=== PATIENT | female | born 1940 | race Caucasian/White ===

== ENCOUNTER 2017-11-02 03:05 | Emergency (ER) | payer MEDICARE, MEDICAID, SELFPAY ==
--- NOTE | 2017-11-02 00:17 | CT_ITS ---
STUDY: CT BRAIN WITHOUT CONTRAST REASON FOR EXAM: Female, 77 years old. Confusion RADIATION DOSAGE (If Supplied By Facility): CTDIvol = ( 44.99 ) mGy, DLP = ( 815.79 ) mGycm TECHNIQUE: Transaxial CT imaging of the brain was performed without administration of intravenous contrast material. Individualized dose optimization techniques were used for this CT. COMPARISON: None. FINDINGS: Normal soft tissue structures. There is evidence of left craniotomy. Postsurgical changes are noted in the left frontal lobe and in the left temporal lobe. There are areas of decreased attenuation within the white matter tracts of the supratentorial brain, consistent with microvascular disease changes. Normal basal ganglia and thalami. Normal brainstem. Normal cerebellum. There is no intracranial hemorrhage. There are no findings of an acute ischemic infarction. Normal visualized paranasal sinuses. CT/Brain/Head without Contrast IMPRESSION: Chronic involutional changes of the brain. Electronically Signed: Jenifer Roman MD at 3:32 EDT Tel , Service support ,
--- NOTE | 2017-11-02 03:00 | RAD_ITS ---
STUDY: X-RAY CHEST REASON FOR EXAM: Female, 77 years old. Confusion TECHNIQUE: Single AP portable view of the chest. COMPARISON: None. FINDINGS: Mild patchy airspace opacification in the right midlung and the right midlung base. Atelectasis at the left lung base. No pleural effusion or pneumothorax. Borderline cardiomegaly. Normal mediastinum and devi. Normal visualized pulmonary arteries. There is atherosclerotic calcification of the aortic arch. Dextroscoliosis of the thoracal lumbar spine with multilevel degenerative change. Normal visualized ribs, clavicles, and shoulders. There is no demonstrated abnormality of the visualized soft tissue structures of the upper abdomen. RAD/Chest 1 View IMPRESSION: Right midlung and bibasilar airspace opacification which may represent multifocal pneumonia versus atelectasis. Electronically Signed: Robert German MD at 3:18 EDT Tel , Service support ,
[2017-11-02 04:33] LABS: Mucous, Urine 0 SEEN /hpf (<or=2+); Red Blood Cells-Urine 0 SEEN /hpf (0-5); White Blood Cells 0 SEEN /hpf (0-5)
--- NOTE | 2017-11-02 04:33 | CT_ITS ---
STUDY: CT CERVICAL SPINE WITHOUT CONTRAST REASON FOR EXAM: Female, 77 years old. Fall RADIATION DOSAGE (If Supplied By Facility): CTDIvol = ( 16.33 ) mGy, DLP = ( 351.70 ) mGycm TECHNIQUE: High resolution transaxial imaging was performed without contrast material. Sagittal and coronal images were reconstructed. Individualized dose optimization techniques were used for this CT. COMPARISON: None FINDINGS: Normal craniovertebral junction. Degenerative changes are present involving the atlantoaxial axial articulation. Mild C4-5 anterolisthesis is likely degenerative in nature. Diffuse degenerative disease is present. A type II dens fracture is present. There is mild dorsal angulation of the dens fracture fragment. Carotid calcifications. Scarring in the lung apices. CT/Spine Cervical without Contras IMPRESSION: A type II dens fracture is present. The dens fragment is mildly dorsally angulated. N.B. : The above information has been verbally conveyed by Ronnie Perez MD to Mari Villatoro , Covering Physician, on 11/02/2017 05:37:29 (ET). Electronically Signed: Ronnie Perez MD at 5:37 EDT Tel , Service support , N.B. : The above information has been verbally conveyed by Ronnie Perez MD to Mari Villatoro , Covering Physician, on 11/02/2017 05:37:29 (ET).
[2017-11-02 04:36] LABS: Absolute Lymphocyte Count 1.03 X10^3/ul (0.83-4.51); Absolute Neutrophil Count 8.1 X10^3/uL (2.0-7.7); Basophil# 0.02 X10^3/uL; Basophil% 0.2 % (0-1); Eosinophil# 0.25 X10^3/uL; Eosinophils% 2.4 % (0-5); Hematocrit 44.4 % (37-47); Hemoglobin 13.8 g/dl (12.0-15.0); Lymphocyte # 1.03 X10^3/ul (4.0); Lymphocyte % 10.1 % (19-41); Mean Corp Hgb Conc 31.1 g/gl (32-36); Mean Corpuscular Hgb 27.1 pg (27.0-32.0); Mean Corpuscular Volume 87.1 fL (81-99); Mean Platelet Vol. 9.9 fl (6.2-12.0); Monocyte# 0.78 X10^3/uL; Monocyte% 7.6 % (0-10); Neutrophil # 8.12 X10^3/uL (2.7-7.7); Neutrophil % 79.3 % (47-70); Platelet Count 240 K/mm3 (150-450); RBC Distribution Width CV 15.8 % (11.6-14.6); RBC Distribution Width SD 50.8 fl (35.1-43.9); White Blood Count 10.2 K/mm3 (4.4-11.0)
--- NOTE | 2017-11-02 04:37 | ED.VISSUMM ---
- ER Visit Summary Date of Service: 11/02/17 Chief Complaint: [Confusion] History of Present Illness: The patient is a 77 F [who presents the emergency department with confusion. She fell down 2 steps. She was out walking around confused in the snow mumbling incoherently. Per her who does not live with her she has been increasingly confused over the last week but has dementia and history of traumatic brain injury. Other history is unable to be obtained as the patient is mumbling incoherently and the is a very poor historian and does not live with her.] Physical Examination: [] Tachycardic at 115 other vitals within normal limits Cachectic unkempt shivering WN WD NAD PERRL left pupil nonreactive and dilated Dry mucous membranes NECK tenderness diffusely mild Giller tachycardic rhythm no murmur rub or gallop, symmetric lower extremity edema, symmetric radial pulses CTAB no respiratory distress ABDOMEN is soft and nontender, normal bowel sounds, no distension, no rebound or guarding SKIN is warm and dry no rashes soft tissue tumors on abdomen and left anterior thigh Alert not oriented no focal deficits following commands intermittently No lymphadenopathy Test Results: [] Emergency Department Course and Treatment: [Patient was given fluids. Screening blood work was unremarkable. King was placed. CT of the cervical spine and head were obtained. CT of the head was reviewed by me and showed encephalomalacia from her previous traumatic brain injury but I did not observe any other acute process. I was called by radiology because patient has a fracture through the base of the dens that is mildly dorsally displaced. Patient was neurologically intact. C-spine precautions were maintained patient and her requested [facility]. I contacted [facility] for transfer and they were agreeable.] Treatment Plan: [] Disposition: [Transfer] Impression: [1. C2 fracture acute 2. Dementia with behavioral disturbances 3. Mild hypothermia] This note was generated with [employer] dictation software. It may contain incorrect words, spelling, and punctuation that were not noted in review of the chart prior to signing ED Disposition - Plan for ED Patient: Chief Complaint: Confusion Referrals: Rakesh Samaniego DO [Primary Care Provider] -
[2017-11-02 04:39] LABS: POSITIVE COUNT NO; POSITIVE DIFFERENTIAL NO; POSITIVE MORPHOLOGY NO
[2017-11-02 04:41] LABS: Color, Urine Yellow (Yellow); Glucose, Dipstick Normal (Normal); Ketone-Dipstick Negative (Negative); Leukocyte Esterase-Dipstick Negative /ul (Negative); Nitrite-Dipstick Negative (Negative); Occult Blood-Urine Negative /ul (Negative); Protein-Dipstick Negative (Negative); Specific Gravity, Urine 1.005 (1.002-1.030); Urine Bilirubin Dipstick Negative (Negative); Urine Clarity Clear (Clear); Urine Urobilinogen Normal (Normal); Urine pH 6.5 (5.0 - 8.0)
[2017-11-02 04:43] LABS: Amphetamine Urine VISTA NEGATIVE (<1000 ng/mL); Barbiturate Urine VISTA NEGATIVE (< 200 ng/mL); Benzodiazepine Urine VISTA NEGATIVE (< 200 ng/mL); Cocaine Urine VISTA NEGATIVE (< 300 ng/mL); Ecstacy Urine VISTA NEGATIVE (< 500 ng/mL); Methadone Urine VISTA POSITIVE (< 300 ng/mL); PCP Urine VISTA NEGATIVE (< 25 ng/mL); THC Urine VISTA NEGATIVE (< 50 ng/mL); Vista UDS pH Range 6
[2017-11-02 04:45] LABS: Alcohol, Blood (Medical)-Serum < 3.0 mg/dL
[2017-11-02 04:59] LABS: Bacteria RARE /hpf (None Seen); Squamous Epithelial Cells - UA 0-5 SEEN /hpf (5-10)
[2017-11-02 05:06] VITALS: BP 155/66; PULSE 104; RESP 23; O2SAT 94
--- NOTE | 2017-11-02 05:06 | NURSING ---
CHARTING DONE ON DOWNTIME FORMS.
[2017-11-02 05:10] LABS: ALB/GLOB Ratio 0.7 RATIO (0.9-2.4); AST(SGOT) 38 U/L (15-37); Alanine Aminotransfer ALT/SGPT 22 U/L (13-56); Alkaline Phosphatase 120 U/L (45-117); Amylase 24 U/L (25-115); Anion Gap 10 (5-15); BUN 5 mg/dL (7-18); BUN/Creat Ratio 7.9 RATIO (10-20); Calcium,Total 9.5 mg/dL (8.5-10.1); Chloride 101 mmol/L (98-107); Creatinine, Serum 0.63 mg/dL (0.55-1.02); EST Glomerular Filtration Rate 97 mL/min (>60); Est Glom Filt Rate - Afr Amer 118 mL/min (>60); Globulin 4.5 g/dL (2.2-4.2); Glucose 90 mg/dL (74-106); Lipase 159 U/L (73-393); Potassium 3.4 mmol/L (3.5-5.1); Protein, Total 7.5 g/dL (6.4-8.2); Sodium Level 139 mmol/L (136-145)
[2017-11-02 06:19] VITALS: BP 154/67; PULSE 111; RESP 23; TEMP 36.3; O2SAT 95
--- NOTE | 2017-11-02 06:21 | NURSING ---
PT UNABLE TO ANSWER QUESTIONS, IS NOT A GOT HISTORIAN.
[2017-11-02 06:22] VITALS: BP 178/65; PULSE 117; RESP 22; TEMP 35.6; O2SAT 96; BMI 23.3
[2017-11-02 08:11] LABS: Bedside Glucose 98 mg/dL (70-110)
== END 2017-11-02 06:24 | disposition short-term general hospital (02) ==
PROVIDERS: Emergency Provider Emergency Medicine; Family Provider Family Medicine; PCP Family Medicine
DX: S12.110A Anterior displaced Type II dens fracture, initial encounter for closed fracture (principal); F03.91 Unspecified dementia, unspecified severity, with behavioral disturbance; F05 Delirium due to known physiological condition; Z91.83 Wandering in diseases classified elsewhere; T68.XXXA Hypothermia, initial encounter; Z79.899 Other long term (current) drug therapy; W10.9XXA Fall (on) (from) unspecified stairs and steps, initial encounter; Y93.01 Activity, walking, marching and hiking; Y92.89 Other specified places as the place of occurrence of the external cause; Y99.8 Other external cause status
CPT/HCPCS: 70450; 71045; 72125; 80053; 80307; 80320; 81001; 82150; 82962; 83690; 85025; 87086; 99285; J7030; A4216; G0480

== ENCOUNTER 2019-05-02 16:42 | Emergency (ER) | payer MEDICARE, SELFPAY ==
[2019-05-02 16:43] VITALS: BP 145/78; PULSE 75; RESP 16; TEMP 36.1; O2SAT 97; BMI 23.8
--- NOTE | 2019-05-02 16:52 | EKG12_ITS ---
Test Reason : Blood Pressure : / mmHG Vent. Rate : 072 BPM Atrial Rate : 072 BPM P-R Int : 222 ms QRS Dur : 076 ms QT Int : 358 ms P-R-T Axes : 046 -11 014 degrees QTc Int : 392 ms Sinus rhythm with 1st degree A-V block Minimal voltage criteria for LVH, may be normal variant Possible Anterior infarct , age undetermined Abnormal ECG Confirmed by MARVA WHEELER, LOULOU ([id number]), avid editor GISELE PORTER ([id number]) on 05/04/2019 1:31:25 PM Referred By: [facility]O Confirmed By:NENA DURHAM MD
[2019-05-02 17:10] VITALS: O2SAT 98
[2019-05-02 17:31] LABS: Absolute Lymphocyte Count 1.06 X10^3/uL (0.83-4.51); Basophil# 0.06 X10^3/uL; Eosinophil# 0.27 X10^3/uL; Eosinophils% 4.5 % (0-5); Hematocrit 37.6 % (37-47); Hemoglobin 12.2 g/dL (12.0-15.0); Lymphocyte # 1.06 X10^3/ul (4.0); Lymphocyte % 17.8 % (19-41); Mean Corp Hgb Conc 32.4 g/dL (32-36); Mean Corpuscular Hgb 27.9 pg (27.0-32.0); Monocyte# 0.53 X10^3/uL; Monocyte% 8.9 % (0-10); NRBC Flagged by Analyzer 0 % (0-5); Neutrophil # 4.03 X10^3/uL (2.7-7.7); Neutrophil % 67.5 % (47-70); Platelet Count 242 K/mm3 (150-450); RBC Distribution Width CV 13.3 % (11.6-14.6); RBC Distribution Width SD 41.7 fl (35.1-43.9); Red Blood Count 4.37 M/mm3 (4.2-5.4)
[2019-05-02 17:55] LABS: Anion Gap 2 (5-15); BUN 25 mg/dL (7-18); BUN/Creat Ratio 23.8 RATIO (10-20); Calcium,Total 9.2 mg/dL (8.5-10.1); Chloride 101 mmol/L (98-107); Creatinine, Serum 1.05 mg/dL (0.55-1.02); EST Glomerular Filtration Rate 54 mL/min (>60); Est Glom Filt Rate - Afr Amer 65 mL/min (>60); Estimated Creatinine Clearance 36.11 ml/min; Glucose 110 mg/dL (74-106); Potassium 6.2 mmol/L (3.5-5.1); Sodium Level 130 mmol/L (136-145)
[2019-05-02 18:48] VITALS: BP 117/71; PULSE 57; RESP 18; O2SAT 98
--- NOTE | 2019-05-02 18:59 | ED.VISSUMM ---
- ER Visit Summary Date of Service: 05/02/19 Chief Complaint: Hyperkalemia History of Present Illness: The patient is a [address] Samaniego. She reports that she had blood work done today at [facility] and they show that her potassium was 6.1. She believes this was because the blood was drawn an hour after eating a banana. She reports that she has a cough is been present for approximately a month and has been improving. She denies any failure, chills, shortness of breath, or other complaints. Physical Examination: Vitals: Stable. Afebrile. General: Well-nourished and well-developed. Head: Normocephalic atraumatic. Neck: Supple, no lymphadenopathy. No JVD. Nontender. Cardiovascular: Regular rate and rhythm. 2 out of 6 systolic murmur. Respiratory: No respiratory distress. Clear to auscultation bilaterally. Abdominal: Soft, nontender, nondistended, normal bowel sounds. No guarding, rebound, or peritoneal signs. Back: Nontender. Extremities: Nontender, no edema. Skin: Normal color, no rash. Neurologic: Alert and oriented ?3. Cranial nerves II through XII are intact. Normal strength and sensation. Psych: Normal affect. Test Results: EKG is sinus at 72. There are no peaked T waves. She has a normal QRS interval. She is unchanged from October 2017. CBC shows monocytes of 18. Chem-7 shows a sodium 130, potassium 6.2, glucose 110, BUN 25, creatinine 1.05. Emergency Department Course and Treatment: Patient is remained stable here with no complaints. Treatment Plan: The patient was discussed with Dr. Gimenez, covering for Dr. Samaniego, he agrees with the plan of stopping her potassium supplements and her spironolactone. She is instructed to monitor for weight gain or edema. Get a repeat potassium and follow-up with Dr. Samaniego in 1 week. Return to the emergency department for any worsening symptoms. Disposition: To home in improved and stable condition. Impression: 1. Mild hyperkalemia, asymptomatic. 2. Potassium supplementation. This note was generated with [employer] software. It may contain incorrect words, spelling, and punctuation that were not noted in review of the chart prior to signing ED Disposition - Plan for ED Patient: Disposition: Home or Assisted Living Instructions: Hyperkalemia Referrals: Rakesh Samaniego DO [Primary Care Provider] - 1 Week Additional Instructions: Stop taking potassium and spironolactone. Watch for weight gain or leg swelling. Get your potassium checked again in 1 week.
[2019-05-02 19:30] VITALS: BP 138/59; PULSE 63; RESP 17; O2SAT 96
== END 2019-05-02 19:38 | disposition home or self-care (01) ==
PROVIDERS: Emergency Provider Emergency Medicine; Family Provider Family Medicine; PCP Family Medicine
DX: E87.5 Hyperkalemia (principal); F03.90 Unspecified dementia, unspecified severity, without behavioral disturbance, psychotic disturbance, mood disturbance, and anxiety; K21.9 Gastro-esophageal reflux disease without esophagitis; I10 Essential (primary) hypertension; E03.9 Hypothyroidism, unspecified; F41.9 Anxiety disorder, unspecified; F32.9 Major depressive disorder, single episode, unspecified; Z87.891 Personal history of nicotine dependence; Z79.899 Other long term (current) drug therapy
CPT/HCPCS: 80048; 85025; 93005; 96360; 99283; J7040; A4216

== ENCOUNTER → 2019-05-10 | Outpatient (CLI) | payer MEDICARE, MEDICAID, SELFPAY ==
[2019-05-02 16:43] VITALS: BMI 23.8
[2019-05-10 15:54] LABS: Absolute Lymphocyte Count 1.12 X10^3/uL (0.83-4.51); Absolute Neutrophil Count 3.8 X10^3/uL (2.0-7.7); Basophil# 0.08 X10^3/uL; Basophil% 1.4 % (0-1); Eosinophil# 0.28 X10^3/uL; Eosinophils% 4.8 % (0-5); Hematocrit 35.6 % (37-47); Hemoglobin 11.2 g/dL (12.0-15.0); Lymphocyte # 1.12 X10^3/ul (4.0); Lymphocyte % 19.3 % (19-41); Mean Corp Hgb Conc 31.5 g/dL (32-36); Mean Corpuscular Hgb 27.3 pg (27.0-32.0); Mean Corpuscular Volume 86.8 fL (81-99); Mean Platelet Vol. 9.5 fl (6.2-12.0); Monocyte# 0.56 X10^3/uL; Monocyte% 9.7 % (0-10); NRBC Flagged by Analyzer 0 % (0-5); Neutrophil # 3.75 X10^3/uL (2.7-7.7); Neutrophil % 64.6 % (47-70); Platelet Count 229 K/mm3 (150-450); RBC Distribution Width CV 13.3 % (11.6-14.6); RBC Distribution Width SD 42.2 fl (35.1-43.9); White Blood Count 5.8 K/mm3 (4.4-11.0)
[2019-05-10 16:19] LABS: ALB/GLOB Ratio 1.1 RATIO (0.9-2.4); AST(SGOT) 20 U/L (15-37); Alanine Aminotransfer ALT/SGPT 19 U/L (13-56); Albumin, Serum 3.9 g/dL (3.2-5.0); Alkaline Phosphatase 100 U/L (45-117); Anion Gap 7 (5-15); BUN 22 mg/dL (7-18); BUN/Creat Ratio 23.4 RATIO (10-20); Calcium,Total 9.3 mg/dL (8.5-10.1); Chloride 96 mmol/L (98-107); Creatinine, Serum 0.94 mg/dL (0.55-1.02); EST Glomerular Filtration Rate 61 mL/min (>60); Est Glom Filt Rate - Afr Amer 74 mL/min (>60); Globulin 3.6 g/dL (2.2-4.2); Glucose 91 mg/dL (74-106); Protein, Total 7.5 g/dL (6.4-8.2); Sodium Level 135 mmol/L (136-145); Thyroid Stim Hormone (TSH) 2.46 uIU/mL (0.358-3.74)
[2019-05-10 16:50] LABS: Vitamin D,25 Hydroxy 21.8 ng/mL (29.95-100.01)
== END | disposition home or self-care (01) ==
LOC: POLAB3 15:20
PROVIDERS: Visit Provider Family Medicine Geriatric Medicine
DX: E55.9 Vitamin D deficiency, unspecified (principal)
CPT/HCPCS: 36415; 80053; 82306; 84443; 85025

== ENCOUNTER → 2019-05-24 | Outpatient (CLI) | payer MEDICARE, SELFPAY ==
[2019-05-02 16:43] VITALS: BMI 23.8
--- NOTE | 2019-05-24 14:25 | RAD_ITS ---
STUDY: X-RAY - THORACIC SPINE REASON FOR EXAM: Female, 79 years old. Back pain. TECHNIQUE: AP and lateral view(s) of the thoracic spine were obtained. COMPARISON: Radiographs lumbar spine dated July 11, 2017. FINDINGS: There is an increase in the normal thoracic kyphosis. There is no substantial scoliosis. There is demineralization of the thoracic spine with endplate spondylosis. There is multilevel disc space narrowing of the thoracic spine. There is severe compression fracture of T12 and T10 vertebral plan appearances. The compression fracture T12 is new since the previous study as is the fracture of T10. The soft tissue structures are unremarkable. RAD/Thoracic Spine 2 Views IMPRESSION: Osteoporosis with severe compression fractures of T10 and T12 new since the previous study. Electronically Signed: Sarah Wright MD at 10:44 EDT , Service support ,
--- NOTE | 2019-05-24 14:25 | RAD_ITS ---
STUDY: X-RAY - LUMBAR SPINE REASON FOR EXAM: Female, 79 years old. Low back pain. TECHNIQUE: 5 view(s) of the lumbar spine were obtained. COMPARISON: CT of the abdomen and pelvis dated July 22, 2017. FINDINGS: Normal lumbar lordosis. There is no substantial scoliosis. There is a normal alignment of the vertebrae. There is generalized demineralization of the vertebral bodies. There is a severe compression fracture of T10. Estimated amount of compression is at least 70% of the expected height of this vertebral body. There is also severe compression fracture of T12 with vertebral plana appearance. This is new since the previous CT. There is multi-level degenerative disc disease with multi-level disc space narrowing. There is atherosclerotic calcification of the abdominal aorta without a demonstrated aneurysm. RAD/L/S Spine Min 4 Views IMPRESSION: 1. Osteoporosis. 2. A severe compression fracture of T12, new since the previous CT. 3. Severe compression fracture of T10 is probably unchanged since the previous study. Electronically Signed: Sarah Wright MD at 10:29 EDT , Service support ,
== END | disposition home or self-care (01) ==
PROVIDERS: Family Provider Family Medicine Geriatric Medicine; PCP Family Medicine Geriatric Medicine; Referring Provider Nurse Practitioner Family; Visit Provider Nurse Practitioner Family
DX: M54.5 Low back pain (principal); M54.6 Pain in thoracic spine
CPT/HCPCS: 72070; 72072; 72110

== ENCOUNTER → 2019-08-14 14:58 | Outpatient (CLI) | payer MEDICARE, SELFPAY ==
[2019-08-14 17:06] LABS: Absolute Lymphocyte Count 1.51 X10^3/uL (0.83-4.51); Absolute Neutrophil Count 5.7 X10^3/uL (2.0-7.7); Basophil# 0.06 X10^3/uL; Basophil% 0.7 % (0-1); Eosinophil# 0.24 X10^3/uL; Hematocrit 40.7 % (37-47); Hemoglobin 12.5 g/dL (12.0-15.0); Lymphocyte # 1.51 X10^3/ul (4.0); Lymphocyte % 18.6 % (19-41); Mean Corp Hgb Conc 30.7 g/dL (32-36); Mean Corpuscular Hgb 28.5 pg (27.0-32.0); Mean Corpuscular Volume 92.7 fL (81-99); Mean Platelet Vol. 9.9 fl (6.2-12.0); Monocyte# 0.61 X10^3/uL; Monocyte% 7.5 % (0-10); NRBC Flagged by Analyzer 0 % (0-5); Neutrophil # 5.66 X10^3/uL (2.7-7.7); Platelet Count 243 K/mm3 (150-450); RBC Distribution Width CV 12.9 % (11.6-14.6); Red Blood Count 4.39 M/mm3 (4.2-5.4); White Blood Count 8.1 K/mm3 (4.4-11.0)
[2019-08-14 17:25] LABS: Vitamin D,25 Hydroxy 14.1 ng/mL (29.95-100.01)
[2019-08-14 17:26] LABS: ALB/GLOB Ratio 1.1 RATIO (0.9-2.4); AST(SGOT) 17 U/L (15-37); Alanine Aminotransfer ALT/SGPT 19 U/L (13-56); Albumin, Serum 3.9 g/dL (3.2-5.0); Alkaline Phosphatase 102 U/L (45-117); Anion Gap 5 (5-15); BUN 19 mg/dL (7-18); BUN/Creat Ratio 18.8 RATIO (10-20); Calcium,Total 9.2 mg/dL (8.5-10.1); Chloride 104 mmol/L (98-107); Creatinine, Serum 1.01 mg/dL (0.55-1.02); EST Glomerular Filtration Rate 56 mL/min (>60); Est Glom Filt Rate - Afr Amer 68 mL/min (>60); Globulin 3.7 g/dL (2.2-4.2); Glucose 94 mg/dL (74-106); Potassium 4.2 mmol/L (3.5-5.1); Protein, Total 7.6 g/dL (6.4-8.2); Sodium Level 139 mmol/L (136-145)
== END ==
PROVIDERS: Family Provider Family Medicine Geriatric Medicine; PCP Family Medicine Geriatric Medicine; Visit Provider Family Medicine Geriatric Medicine
DX: E55.9 Vitamin D deficiency, unspecified (principal); I10 Essential (primary) hypertension
CPT/HCPCS: 36415; 80053; 82306; 84443; 85025

== ENCOUNTER → 2019-08-27 17:02 | Outpatient (CLI) | payer MEDICARE, SELFPAY ==
--- NOTE | 2019-08-27 17:10 | RAD_ITS ---
STUDY: X-RAY - ABDOMEN/PELVIS REASON FOR EXAM: Female, 79 years old. fecal impaction TECHNIQUE: AP supine and upright views of the abdomen and pelvis. COMPARISON: Previous study of 07/15/2017 FINDINGS: Normal visualized lung bases. There is an unremarkable bowel gas pattern. There is no demonstrated free abdominal air. The visualized liver, spleen and kidneys are grossly normal in size and morphology. Normal soft tissue structures. There is a severe S-shaped thoracolumbar scoliosis. RAD/Abd Inc Decub and/or Erect IMPRESSION: The bowel gas pattern is unremarkable. There is actually a paucity of colonic stool. There is no evidence of ileus or obstruction. S-shaped thoracolumbar scoliosis. Electronically Signed: Pako López MD at 16:19 EST , Service support ,
== END ==
PROVIDERS: Family Provider Family Medicine Geriatric Medicine; PCP Family Medicine Geriatric Medicine; Referring Provider Family Medicine Geriatric Medicine; Visit Provider Family Medicine Geriatric Medicine
DX: K56.41 Fecal impaction (principal); R50.9 Fever, unspecified
CPT/HCPCS: 74019; 87633

== ENCOUNTER → 2019-11-15 | Outpatient (CLI) | payer MEDICARE, SELFPAY ==
[2019-11-15 16:20] LABS: Absolute Lymphocyte Count 1.64 X10^3/uL (0.83-4.51); Absolute Neutrophil Count 4.8 X10^3/uL (2.0-7.7); Basophil# 0.07 X10^3/uL; Eosinophil# 0.15 X10^3/uL; Eosinophils% 2.1 % (0-5); Hematocrit 42.7 % (37-47); Hemoglobin 13.6 g/dL (12.0-15.0); Lymphocyte # 1.64 X10^3/ul (4.0); Lymphocyte % 22.8 % (19-41); Mean Corp Hgb Conc 31.9 g/dL (32-36); Mean Corpuscular Hgb 29.6 pg (27.0-32.0); Mean Platelet Vol. 9.5 fl (6.2-12.0); Monocyte# 0.53 X10^3/uL; Monocyte% 7.4 % (0-10); NRBC Flagged by Analyzer 0 % (0-5); Neutrophil # 4.77 X10^3/uL (2.7-7.7); Neutrophil % 66.4 % (47-70); Platelet Count 236 K/mm3 (150-450); RBC Distribution Width CV 12.9 % (11.6-14.6); RBC Distribution Width SD 44.1 fl (35.1-43.9); Red Blood Count 4.59 M/mm3 (4.2-5.4); White Blood Count 7.2 K/mm3 (4.4-11.0)
[2019-11-15 16:39] LABS: Vitamin D,25 Hydroxy 13.2 ng/mL
[2019-11-15 17:12] LABS: ALB/GLOB Ratio 1.1 RATIO (0.9-2.4); AST(SGOT) 22 U/L (15-37); Alanine Aminotransfer ALT/SGPT 25 U/L (13-56); Albumin, Serum 3.9 g/dL (3.2-5.0); Alkaline Phosphatase 91 U/L (45-117); Anion Gap 10 (5-15); BUN 21 mg/dL (7-18); BUN/Creat Ratio 20.6 RATIO (10-20); Calcium,Total 8.9 mg/dL (8.5-10.1); Chloride 99 mmol/L (98-107); Creatinine, Serum 1.02 mg/dL (0.55-1.02); EST Glomerular Filtration Rate 55 mL/min (>60); Est Glom Filt Rate - Afr Amer 67 mL/min (>60); Globulin 3.6 g/dL (2.2-4.2); Glucose 98 mg/dL (74-106); Potassium 4.2 mmol/L (3.5-5.1); Protein, Total 7.5 g/dL (6.4-8.2); Sodium Level 135 mmol/L (136-145); Thyroid Stim Hormone (TSH) 0.31 uIU/mL (0.358-3.74)
== END | disposition home or self-care (01) ==
LOC: POLAB3 14:16
PROVIDERS: PCP Family Medicine Geriatric Medicine; Visit Provider Family Medicine Geriatric Medicine
DX: E55.9 Vitamin D deficiency, unspecified (principal); I10 Essential (primary) hypertension
CPT/HCPCS: 36415; 80053; 82306; 84443; 85025

== ENCOUNTER → 2020-01-01 10:29 | Outpatient (CLI) | payer MEDICARE, SELFPAY ==
[2020-01-01 13:10] LABS: Thyroid Stim Hormone (TSH) 1.07 uIU/mL (0.358-3.74)
== END ==
PROVIDERS: PCP Family Medicine Geriatric Medicine; Visit Provider Family Medicine Geriatric Medicine
DX: E03.9 Hypothyroidism, unspecified (principal)
CPT/HCPCS: 36415; 84443

== ENCOUNTER → 2020-01-21 15:31 | Outpatient (CLI) | payer MEDICARE, SELFPAY ==
[2020-01-21 17:39] LABS: Thyroid Stim Hormone (TSH) 0.61 uIU/mL (0.358-3.74)
== END ==
PROVIDERS: PCP Family Medicine Geriatric Medicine; Visit Provider Family Medicine Geriatric Medicine
DX: E03.9 Hypothyroidism, unspecified (principal)
CPT/HCPCS: 36415; 84443

== ENCOUNTER → 2020-02-13 | Outpatient (CLI) | payer MEDICARE, SELFPAY ==
[2020-02-13 16:11] LABS: Absolute Lymphocyte Count 1.22 X10^3/uL (0.83-4.51); Absolute Neutrophil Count 3.9 X10^3/uL (2.0-7.7); Basophil# 0.07 X10^3/uL; Basophil% 1.2 % (0-1); Eosinophil# 0.24 X10^3/uL; Hematocrit 40.6 % (37-47); Lymphocyte # 1.22 X10^3/ul (4.0); Lymphocyte % 20.3 % (19-41); Mean Corpuscular Hgb 29.5 pg (27.0-32.0); Mean Corpuscular Volume 92.3 fL (81-99); Mean Platelet Vol. 9.8 fl (6.2-12.0); Monocyte# 0.56 X10^3/uL; Monocyte% 9.3 % (0-10); NRBC Flagged by Analyzer 0 % (0-5); Neutrophil % 64.7 % (47-70); Platelet Count 222 K/mm3 (150-450); RBC Distribution Width CV 11.6 % (11.6-14.6)
[2020-02-13 16:47] LABS: AST(SGOT) 18 U/L (15-37); Alanine Aminotransfer ALT/SGPT 15 U/L (13-56); Albumin, Serum 3.5 g/dL (3.2-5.0); Alkaline Phosphatase 84 U/L (45-117); Anion Gap 4 (5-15); BUN 16 mg/dL (7-18); BUN/Creat Ratio 17.3 RATIO (10-20); Calcium,Total 8.9 mg/dL (8.5-10.1); Chloride 106 mmol/L (98-107); Creatinine, Serum 0.93 mg/dL (0.55-1.02); EST Glomerular Filtration Rate 62 mL/min (>60); Est Glom Filt Rate - Afr Amer 75 mL/min (>60); Globulin 3.6 g/dL (2.2-4.2); Glucose 114 mg/dL (74-106); Potassium 3.9 mmol/L (3.5-5.1); Protein, Total 7.1 g/dL (6.4-8.2); Sodium Level 139 mmol/L (136-145); Thyroid Stim Hormone (TSH) 1.26 uIU/mL (0.358-3.74)
[2020-02-13 17:07] LABS: Vitamin D,25 Hydroxy 26.6 ng/mL
== END | disposition home or self-care (01) ==
LOC: POLAB3 15:07
PROVIDERS: PCP Family Medicine Geriatric Medicine; Visit Provider Family Medicine Geriatric Medicine
DX: E55.9 Vitamin D deficiency, unspecified (principal); I10 Essential (primary) hypertension
CPT/HCPCS: 36415; 80053; 82306; 84443; 85025

== ENCOUNTER → 2020-05-12 | Outpatient (CLI) | payer MEDICARE, SELFPAY ==
[2020-05-12 17:16] LABS: Absolute Lymphocyte Count 1.64 X10^3/uL (0.83-4.51); Absolute Neutrophil Count 3.8 X10^3/uL (2.0-7.7); Basophil# 0.08 X10^3/uL; Basophil% 1.3 % (0-1); Eosinophil# 0.25 X10^3/uL; Eosinophils% 3.9 % (0-5); Hematocrit 40.6 % (37-47); Hemoglobin 12.9 g/dL (12.0-15.0); Lymphocyte # 1.64 X10^3/ul (4.0); Lymphocyte % 25.7 % (19-41); Mean Corp Hgb Conc 31.8 g/dL (32-36); Mean Corpuscular Volume 91.2 fL (81-99); Monocyte# 0.63 X10^3/uL; Monocyte% 9.9 % (0-10); NRBC Flagged by Analyzer 0 % (0-5); Neutrophil # 3.75 X10^3/uL (2.7-7.7); Neutrophil % 58.9 % (47-70); Platelet Count 269 K/mm3 (150-450); RBC Distribution Width CV 12.4 % (11.6-14.6); RBC Distribution Width SD 40.9 fl (35.1-43.9); Red Blood Count 4.45 M/mm3 (4.2-5.4); White Blood Count 6.4 K/mm3 (4.4-11.0)
[2020-05-12 17:59] LABS: Vitamin D,25 Hydroxy 26.7 ng/mL
[2020-05-12 18:19] LABS: AST(SGOT) 27 U/L (15-37); Alanine Aminotransfer ALT/SGPT 17 U/L (13-56); Albumin, Serum 3.7 g/dL (3.2-5.0); Alkaline Phosphatase 83 U/L (45-117); Anion Gap 7 (5-15); BUN 16 mg/dL (7-18); BUN/Creat Ratio 14.2 RATIO (10-20); Calcium,Total 9.2 mg/dL (8.5-10.1); Chloride 102 mmol/L (98-107); Creatinine, Serum 1.13 mg/dL (0.55-1.02); EST Glomerular Filtration Rate 49 mL/min (>60); Est Glom Filt Rate - Afr Amer 59 mL/min (>60); Globulin 3.7 g/dL (2.2-4.2); Glucose 109 mg/dL (74-106); Potassium 4.3 mmol/L (3.5-5.1); Protein, Total 7.4 g/dL (6.4-8.2); Sodium Level 136 mmol/L (136-145); Thyroid Stim Hormone (TSH) 1.98 uIU/mL (0.358-3.74)
== END | disposition home or self-care (01) ==
LOC: POLAB3 14:50
PROVIDERS: PCP Family Medicine Geriatric Medicine; Visit Provider Family Medicine Geriatric Medicine
DX: E55.9 Vitamin D deficiency, unspecified (principal); I10 Essential (primary) hypertension
CPT/HCPCS: 36415; 80053; 82306; 84443; 85025

== ENCOUNTER → 2020-07-22 09:26 | Outpatient (CLI) | payer MEDICARE, SELFPAY ==
--- NOTE | 2020-07-22 09:34 | RAD_ITS ---
STUDY: X-RAY - ESOPHAGUS (BARIUM SWALLOW) WITH FLUOROSCOPY REASON FOR EXAM: Female, 80 years old. DYSPHAGIA, DRAINAGE TECHNIQUE: 18 view(s) of the esophagus were obtained following swallowing of barium. FLUOROSCOPY TIME (if supplied): (0:44) minutes/seconds COMPARISON: None. FINDINGS: There is no demonstrated esophageal foreign body. There is no demonstrated stricture or mucosal abnormality. Normal gastroesophageal junction, without a demonstrated hiatal hernia. The patient ingested a 12 mm tablet of barium. The tablet is trapped at the gastroesophageal junction. There is atherosclerotic tortuosity of the aortic arch and descending thoracic aorta. Normal visualized pulmonary parenchyma. There are diffuse degenerative changes of the visualized thoracic spine. RAD/Esophagus Single Contrast IMPRESSION: The ingested 12 mm tablet of barium is trapped at the gastroesophageal junction. Electronically Signed: Bernardino Calabrese, at 10:12 EST , Service support ,
== END ==
PROVIDERS: PCP Family Medicine Geriatric Medicine; Referring Provider Family Medicine Geriatric Medicine; Visit Provider Family Medicine Geriatric Medicine
DX: R47.89 Other speech disturbances (principal)
CPT/HCPCS: 74220

== ENCOUNTER → 2021-03-05 05:00 | Outpatient (REF) | payer MEDICARE, MEDICAID, SELFPAY ==
[2021-03-05 08:11] LABS: Hemoglobin 11.5 g/dL (12.0-15.0); Mean Corp Hgb Conc 31.1 g/dL (32-36); Mean Corpuscular Hgb 28.9 pg (27.0-32.0); Mean Platelet Vol. 9.3 fl (6.2-12.0); Platelet Count 218 K/mm3 (150-450); RBC Distribution Width CV 12.9 % (11.6-14.6); Red Blood Count 3.98 M/mm3 (4.2-5.4); White Blood Count 7.3 K/mm3 (4.4-11.0)
[2021-03-05 08:23] LABS: Anion Gap 4 (5-15); BUN 16 mg/dL (7-18); BUN/Creat Ratio 22.8 RATIO (10-20); Calcium,Total 8.5 mg/dL (8.5-10.1); Chloride 106 mmol/L (98-107); EST Glomerular Filtration Rate 85 mL/min (>60); Est Glom Filt Rate - Afr Amer 103 mL/min (>60); Glucose 113 mg/dL (74-106); Potassium 3.9 mmol/L (3.5-5.1); Sodium Level 141 mmol/L (136-145)
== END ==
LOC: OLS.SWAL 05:00
PROVIDERS: PCP Family Medicine Geriatric Medicine; Visit Provider Internal Medicine
DX: I10 Essential (primary) hypertension (principal)
CPT/HCPCS: 36415; 80048; 85027

== ENCOUNTER 2021-05-11 13:12 | Emergency (ER) | payer MEDICARE, MEDICAID, SELFPAY ==
[2021-05-11 13:14] VITALS: BP 176/104; PULSE 69; RESP 18; TEMP 36.8; O2SAT 98; BMI 25.4
--- NOTE | 2021-05-11 14:10 | CT_ITS ---
STUDY: CT BRAIN WITHOUT CONTRAST REASON FOR EXAM: Female, 81 years old. Altered mental status RADIATION DOSAGE (If Supplied By Facility): CTDIvol = ( 38.43 ) mGy, DLP = ( 683.87 ) mGycm TECHNIQUE: Transaxial CT imaging of the brain was performed without administration of intravenous contrast material. Individualized dose optimization techniques were used for this CT. COMPARISON: Comparison is made with prior study dated 05/29/2016. FINDINGS: Normal soft tissue structures. Once again, the patient is status post craniotomy of the left frontal temporal region. There is mild cerebral atrophy with widening of the extra-axial spaces and ventricular dilatation. Stable encephalomalacia involving the left temporal lobe extending into the left frontal and parietal lobes. Stable chronic periventricular deep white matter ischemic gliosis. Old lacunar infarct of the insular cortex of the right temporal lobe. Normal brainstem. Normal cerebellum. There is no intracranial hemorrhage. There are no findings of an acute ischemic infarction. Normal visualized paranasal sinuses. CT/Brain/Head without Contrast IMPRESSION: Status post left craniotomy with stable encephalomalacia. No acute abnormality is seen. Electronically Signed: Bernardino Calabrese MD at 14:58 EDT , Service support ,
[2021-05-11 14:26] LABS: Absolute Lymphocyte Count 1.57 X10^3/uL (0.83-4.51); Absolute Neutrophil Count 4.4 X10^3/uL (2.0-7.7); Basophil# 0.07 X10^3/uL; Eosinophil# 0.27 X10^3/uL; Eosinophils% 3.9 % (0-5); Hematocrit 42.2 % (37-47); Hemoglobin 13.4 g/dL (12.0-15.0); Lymphocyte # 1.57 X10^3/ul (0.83-4.51); Lymphocyte % 22.8 % (19-41); Mean Corp Hgb Conc 31.8 g/dL (32-36); Mean Corpuscular Volume 91.3 fL (81-99); Mean Platelet Vol. 9.7 fl (6.2-12.0); Monocyte# 0.57 X10^3/uL; Monocyte% 8.3 % (0-10); NRBC Flagged by Analyzer 0 % (0-5); Neutrophil # 4.38 X10^3/uL (2.7-7.7); Neutrophil % 63.7 % (47-70); Platelet Count 205 K/mm3 (150-450); RBC Distribution Width CV 12.9 % (11.6-14.6); RBC Distribution Width SD 43.5 fl (35.1-43.9); Red Blood Count 4.62 M/mm3 (4.2-5.4); White Blood Count 6.9 K/mm3 (4.4-11.0)
--- NOTE | 2021-05-11 14:30 | RAD_ITS ---
STUDY: X-RAY CHEST REASON FOR EXAM: Female, 81 years old. AMS TECHNIQUE: Single AP portable view of the chest. COMPARISON: Comparison is made with prior study dated 04/04/2014. FINDINGS: Questionable early infiltrate in the right upper lobe. Mild increased markings at the left lung base. There is no demonstrated pleural abnormality. Normal size heart. Prominence of the right hilum. Underlying mass lesion in the right hilum should be ruled out. Normal visualized pulmonary arteries. There is atherosclerotic calcification of the aortic arch with tortuosity. Normal visualized thoracic spine. Normal visualized ribs, clavicles, and shoulders. There is no demonstrated abnormality of the visualized soft tissue structures of the upper abdomen. RAD/Chest 1 View (Portable) IMPRESSION: Questionable early infiltrate in the right upper lobe with prominence of the right hilar structures. Correlation with the CT scan recommended. Electronically Signed: Bernardino Calabrese MD at 14:52 EDT , Service support ,
--- NOTE | 2021-05-11 14:35 | EDS_ITS ---
HPI HPI - Psych History of Present Illness Chief Complaint: Mental Health Narrative Narrative: 81-year-old female from [facility] presenting with increased hallucinations, agitation, aggression with staff at [facility]. Patient is unable to give a history. Apparently over the weekend the patient was bringing her piña initially stating that her neighbor was playing loud music however when she was checked on there was no music heard in the patient's room. The nurse went to the neighbors room and there was no music playing. She complained of this a couple of times. Patient also has reports of reading her piña saying that she is confused and scared. Nursing staff attempted to calm her down and was reassured that nobody had acute of her room except for the nursing staff. She then ran again and stating that somebody was outside her door. Early in the morning nursing staff went in and she began swinging at the staff member. She had her lights on in the room stating that she was scared. She was stating I know they will be coming back for me. She is stating that her legs are hurting from chasing people all night. Patient does have history of anxiety, hypertension, personality sorter, dementia, TBI. [facility] Medical History Anxiety Dementia Depression Dysphagia, oral phase GERD (gastroesophageal reflux disease) Hypertension Psychotic disorder with hallucinations due to known physiological condition Traumatic brain injury Home Medications levothyroxine 88 mcg PO DAILY 04/04/14 [History Last Taken Unknown] acetaminophen [Tylenol Extra Strength] 1,000 mg PO TID 05/11/21 [History Last Taken Unknown] albuterol sulfate 2 puff INHALATION TID 05/11/21 [History Last Taken Unknown] doxepin 50 mg PO QHS 05/11/21 [History Last Taken Unknown] lidocaine 1 patch TOPICAL DAILY 05/11/21 [History Last Taken Unknown] lisinopril 20 mg PO DAILY 05/11/21 [History Last Taken Unknown] meloxicam 15 mg PO DAILY 05/11/21 [History Last Taken Unknown] memantine 10 mg PO BID 05/11/21 [History Last Taken Unknown] metoprolol succinate 50 mg PO DAILY 05/11/21 [History Last Taken Unknown] senna-docusate sodium [Senna Plus (senna-docusate)] 2 tab PO BID 05/11/21 [History Last Taken Unknown] Allergy/AdvReac Type Severity Reaction Status Date / Time alprazolam [From Xanax] Allergy Other Verified 05/02/19 17:06 chlorpheniramine maleate Allergy Other Verified 05/02/19 17:06 [From Actifed Cold-Allergy] Penicillins Allergy Rash Verified 05/02/19 17:06 phenylephrine HCl Allergy Other Verified 05/02/19 17:06 [From Actifed Cold-Allergy] pseudoephedrine HCl Allergy Other Verified 05/02/19 17:06 [From Actifed Cold-Allergy] Sulfa (Sulfonamide Allergy Vomiting Verified 05/02/19 17:06 Antibiotics) triprolidine HCl Allergy Other Verified 05/02/19 17:06 [From Actifed Cold-Allergy] Social History Smoking Status: Never smoker ROS ROS ED Review of Systems ROS Unobtainable: due to mental status EXAM Physical Exam Const Vital Signs: 05/11/21 13:14 05/11/21 15:37 05/11/21 16:00 Temperature 98.3 F Temperature Source Temporal Pulse Rate 69 Respiratory Rate 18 17 16 Blood Pressure 176/104 H Blood Pressure Mean 128 Pulse Ox 98 Oxygen Delivery Method Room Air Room Air 05/11/21 17:00 05/11/21 18:00 05/11/21 19:25 Temperature Temperature Source Pulse Rate 88 Respiratory Rate 17 17 16 Blood Pressure 160/80 H Blood Pressure Mean 106 Pulse Ox 98 Oxygen Delivery Method Room Air Room Air Positive well nourished General Appearance ED: NAD HEENT normocephalic and atraumatic Eyes PERRL and EOMs intact bilaterally Resp normal respiratory effort and clear to auscultation bilaterally Cardio Rate: regular rate Rhythm: regular rhythm GI non-tender and non-distended Palpation: soft Extremity normal to inspection Neuro CN's II-XII intact bilaterally and no sensory deficits noted Sensorium / Orientation: alert Motor Exam: strength 5/5 throughout Psych Appearance: grossly normal Skin Lesions: no lesions Rashes: no rashes MDM MDM MDM Narrative Medical decision making narrative: Patient presenting with increased agitation and apparently was aggressive with staff and hallucinating. She does have history of dementia and TBI. There is no report of injury. Patient had blood work done today which shows a normal CBC and CMP. Troponin was 9. EtOH 9. Drug screen negative. Chest x-ray on my interpretation showed no acute cardiopulmonary process however the radiologist view there may be a developing infiltrate in the right lower lobe. There was recommendation for CT scan which was performed. CT of the chest shows bilateral apical thickening/scarring and interstitial thickening in the upper lobes. I did attempt to call the on-call doctor for her at her facility however never returned a call I was going to report these findings. Patient has normal vital signs and has been stable here. She did have to get Haldol x1. After that she was able to eat a sandwich and is resting comfortably in bed. After medically cleared she did see social work and elementary [employer] social worker was able to talk to the facility and they are amenable to taking her back. I feel she is stable to be discharged back to the facility at this time. Impression: 1. Apical lung scarring/thickening upper lobes 2. Agitated behavior Lab Data Attestation: I reviewed the patient's lab results. Labs: Laboratory Results - last 24 hr 05/11/21 05/11/21 05/11/21 14:14 14:14 14:14 WBC 6.9 RBC 4.62 Hgb 13.4 Hct 42.2 MCV 91.3 MCH 29.0 MCHC 31.8 L RDW Std Deviation 43.5 RDW Coeff of Rai 12.9 Plt Count 205 MPV 9.7 Immature Gran % (Auto) 0.300 Neut % (Auto) 63.7 Lymph % (Auto) 22.8 [place] % (Auto) 8.3 Eos % (Auto) 3.9 Baso % (Auto) 1.0 Absolute Neuts (auto) 4.4 Absolute Lymphs (auto) 1.57 Nucleated RBC % 0 Sodium 143 Potassium 3.8 Chloride 105 Carbon Dioxide 32.0 Anion Gap 6 BUN 18 Creatinine 0.88 Estim Creat Clear Calc 40.77 Est GFR (MDRD) Af Amer 79 Est GFR (MDRD) Non-Af 65 BUN/Creatinine Ratio 20.3 H Glucose 100 Calcium 9.2 Total Bilirubin 0.50 AST 21 ALT 15 Alkaline Phosphatase 78 Troponin I High Sens 9 Total Protein 7.2 Albumin 3.7 Globulin 3.5 Albumin/Globulin Ratio 1.1 Urine Opiates Screen Urine Methadone Screen Ur Barbiturates Screen Ur Phencyclidine Scrn Ur Amphetamines Screen U Methamphetamin-MDMA U Benzodiazepines Scrn Urine Cocaine Screen U Cannabinoids Screen Ur Drug Screen Comment Ethyl Alcohol 9.0 05/11/21 14:14 WBC RBC Hgb Hct MCV MCH MCHC RDW Std Deviation RDW Coeff of Rai Plt Count MPV Immature Gran % (Auto) Neut % (Auto) Lymph % (Auto) [place] % (Auto) Eos % (Auto) Baso % (Auto) Absolute Neuts (auto) Absolute Lymphs (auto) Nucleated RBC % Sodium Potassium Chloride Carbon Dioxide Anion Gap BUN Creatinine Estim Creat Clear Calc Est GFR (MDRD) Af Amer Est GFR (MDRD) Non-Af BUN/Creatinine Ratio Glucose Calcium Total Bilirubin AST ALT Alkaline Phosphatase Troponin I High Sens Total Protein Albumin Globulin Albumin/Globulin Ratio Urine Opiates Screen NEGATIVE Urine Methadone Screen NEGATIVE Ur Barbiturates Screen NEGATIVE Ur Phencyclidine Scrn NEGATIVE Ur Amphetamines Screen NEGATIVE U Methamphetamin-MDMA NEGATIVE U Benzodiazepines Scrn NEGATIVE Urine Cocaine Screen NEGATIVE U Cannabinoids Screen NEGATIVE Ur Drug Screen Comment Ethyl Alcohol Radiography Diagnostic Testing: Radiology Impression Brain CT 05/11/21 14:10 IMPRESSION: Status post left craniotomy with stable encephalomalacia. No acute abnormality is seen. Electronically Signed: Bernardino Calabrese MD at 14:58 EDT , Service support , Chest X-Ray 05/11/21 14:30 IMPRESSION: Questionable early infiltrate in the right upper lobe with prominence of the right hilar structures. Correlation with the CT scan recommended. Electronically Signed: Bernardino Calabrese MD at 14:52 EDT , Service support , Chest CT 05/11/21 16:38 IMPRESSION: Bilateral apical nodular densities are noted. Further evaluation is needed. Interstitial thickening/scarring bilaterally in the upper lobes. Electronically Signed: Clem Connors DO at 17:32 EDT Tel [phone], Service support , Discharge Plan Triage Chief Complaint: Mental Health ED Provider: Meng New Dx/Rx/DC Orders Instructions: ED Psychosis Prescriptions: No Action levothyroxine 88 MCG tablet 88 mcg PO DAILY RF: 0 doxepin 50 mg capsule 50 mg PO QHS RF: 0 metoprolol succinate 50 mg tablet extended release 24 hr 50 mg PO DAILY RF: 0 meloxicam 15 mg tablet 15 mg PO DAILY RF: 0 lisinopril 20 mg tablet 20 mg PO DAILY RF: 0 lidocaine 5 % adhesive patch,medicated 1 patch topical DAILY RF: 0 albuterol sulfate 90 mcg/actuation HFA aerosol inhaler 2 puff INHALATION TID RF: 0 acetaminophen [Tylenol Extra Strength] 500 mg Capsule 1,000 mg PO TID RF: 0 Senna Plus (senna-docusate) Tablet 2 tab PO BID RF: 0 memantine 10 mg tablet 10 mg PO BID RF: 0 Primary Care Provider: Sindhu Davis Referrals: Sindhu Davis MD [Primary Care Provider] - Disposition Disposition: Home, Self Care
[2021-05-11 14:41] LABS: Amphetamine Urine VISTA NEGATIVE (<1000 ng/mL); Barbiturate Urine VISTA NEGATIVE (< 200 ng/mL); Benzodiazepine Urine VISTA NEGATIVE (< 200 ng/mL); Cocaine Urine VISTA NEGATIVE (< 300 ng/mL); Ecstacy Urine VISTA NEGATIVE (< 500 ng/mL); Methadone Urine VISTA NEGATIVE (< 300 ng/mL); PCP Urine VISTA NEGATIVE (< 25 ng/mL); THC Urine VISTA NEGATIVE (< 50 ng/mL); Vista UDS pH Range 5
[2021-05-11 14:45] LABS: ALB/GLOB Ratio 1.1 RATIO (0.9-2.4); AST(SGOT) 21 U/L (15-37); Alanine Aminotransfer ALT/SGPT 15 U/L (13-56); Albumin, Serum 3.7 g/dL (3.2-5.0); Alkaline Phosphatase 78 U/L (45-117); Anion Gap 6 (5-15); BUN 18 mg/dL (7-18); BUN/Creat Ratio 20.3 RATIO (10-20); Calcium,Total 9.2 mg/dL (8.5-10.1); Chloride 105 mmol/L (98-107); Creatinine, Serum 0.88 mg/dL (0.55-1.02); EST Glomerular Filtration Rate 65 mL/min (>60); Est Glom Filt Rate - Afr Amer 79 mL/min (>60); Estimated Creatinine Clearance 40.77 ml/min; Globulin 3.5 g/dL (2.2-4.2); Glucose 100 mg/dL (74-106); Potassium 3.8 mmol/L (3.5-5.1); Protein, Total 7.2 g/dL (6.4-8.2); Sodium Level 143 mmol/L (136-145); Troponin-I HS 9 pg/mL (3.0-54.0)
[2021-05-11 15:37] VITALS: RESP 17
[2021-05-11 16:00] VITALS: RESP 16
--- NOTE | 2021-05-11 16:38 | CT_ITS ---
STUDY: CT CHEST WITHOUT CONTRAST REASON FOR EXAM: Female, 81 years old. Abnormal chest xray RADIATION DOSAGE (If Supplied By Facility): CTDIvol = ( 11.62 ) mGy, DLP = ( 319.29 ) mGycm TECHNIQUE: Transaxial imaging was performed without the administration of intravenous contrast material. Individualized dose optimization techniques were used for this CT. COMPARISON: None. FINDINGS: The lungs are expanded. There is a right apical nodular density noted measuring 2.3 x 1.0 x 1.4 cm. A left upper lobe densities also noted measuring 1.8 x 1.8 x 1.1 cm. Interstitial thickening/scarring is noted within the upper lobes. Normal heart and pericardium. Normal mediastinum. Normal hilar regions. Normal unenhanced pulmonary arteries. Calcified aorta arch and descending thoracic aorta. Old compressions are noted on the T8, T10, and T12. There is no demonstrated abnormality of the visualized upper abdomen. CT/Chest without Contrast IMPRESSION: Bilateral apical nodular densities are noted. Further evaluation is needed. Interstitial thickening/scarring bilaterally in the upper lobes. Electronically Signed: Clem Connors DO at 17:32 EDT Tel [phone], Service support ,
[2021-05-11 17:00] VITALS: RESP 17
[2021-05-11 18:00] VITALS: RESP 17
[2021-05-11] MEDS: Haloperidol Lactate 5 MG/ML Vial 2 MG IV (18:01)
[2021-05-11 19:25] VITALS: BP 160/80; PULSE 88; RESP 16; O2SAT 98
--- NOTE | 2021-05-11 19:35 | CM.ED ---
TASNEEM Note Referral Source: MD Referral Reason: Patient, per chart, is having hallucination. SW met with patient briefly. Patient requested this caption writer take mask down as she indicated she could not understand. Patient then dropped her hearing aide and was concerned about it's location however, it was located in bed. Due to patient's functioning level this caption writer was unable to complete assessment. TASNEEM updated MD regarding the interaction and that patient appeared to be at baseline in regards to her diagnosis. MD asked if [facility] would take her back. RN called [facility] and they agreed to take patient back. IF psych issues arise they can also contact any inpatient [facility] however, patient appears to be at baseline. RN reports no aggressive behavior with patient while in ED. Of note, patient has history of TBI. Plan: Return to [facility] as patient is at her baseline Stephanie Echevarria
[2021-05-11] MEDS: Memantine Hydrochloride 10 MG Tablet PO (21:13)
[2021-05-11] MEDS: DOXEPIN HCL 50 MG CAPSULE PO (21:13)
== END 2021-05-11 22:03 | disposition home or self-care (01) ==
PROVIDERS: Emergency Provider Student in an Organized Health Care Education/Training Program; PCP Internal Medicine
DX: J98.4 Other disorders of lung (principal); R45.1 Restlessness and agitation; F03.91 Unspecified dementia, unspecified severity, with behavioral disturbance; F41.9 Anxiety disorder, unspecified; K21.9 Gastro-esophageal reflux disease without esophagitis; I10 Essential (primary) hypertension; F32.9 Major depressive disorder, single episode, unspecified; Z79.899 Other long term (current) drug therapy
CPT/HCPCS: 70450; 71045; 71250; 80048; 80053; 80307; 82077; 84484; 85025; 87426; 96374; 99285

== ENCOUNTER 2021-05-14 01:10 | Emergency (ER) | payer MEDICARE, MEDICAID, SELFPAY ==
[2021-05-14 01:12] VITALS: BP 143/97; PULSE 88; RESP 18; TEMP 36.5; O2SAT 94; BMI 26.7
--- NOTE | 2021-05-14 01:46 | CT_ITS ---
STUDY: CT BRAIN WITHOUT CONTRAST REASON FOR EXAM: Female, 81 years old. Confusion RADIATION DOSAGE (If Supplied By Facility): CTDIvol = ( 44.99 ) mGy, DLP = ( 1580.97 ) mGycm TECHNIQUE: Transaxial CT imaging of the brain was performed without administration of intravenous contrast material. Individualized dose optimization techniques were used for this CT. COMPARISON: 05/11/2021 FINDINGS: Normal soft tissue structures. Normal calvarium. Normal size ventricles and extra-axial spaces for the patient''s age. There are areas of decreased attenuation within the white matter tracts of the supratentorial brain, consistent with microvascular disease changes. Normal basal ganglia and thalami. Normal brainstem. Normal cerebellum. There is no intracranial hemorrhage. There are no findings of an acute ischemic infarction. Large areas of left temporal lobe and left frontal lobe encephalomalacia redemonstrated. Normal visualized paranasal sinuses. Bilateral ocular lens replacements. Left pterional craniotomy again noted. CT/Brain/Head without Contrast IMPRESSION: No intracranial acute abnormal finding. Electronically Signed: Vikram Lainez MD at 4:05 EDT Tel , Service support ,
--- NOTE | 2021-05-14 01:46 | EKG12_ITS ---
Test Reason : ALT LOC Blood Pressure : / mmHG Vent. Rate : 089 BPM Atrial Rate : 089 BPM P-R Int : 162 ms QRS Dur : 084 ms QT Int : 366 ms P-R-T Axes : 046 -10 -10 degrees QTc Int : 445 ms Normal sinus rhythm Nonspecific T wave abnormality Abnormal ECG Confirmed by ROSALIND WHEELER, ESPINOZA ([id number]), index editor GISELE PORTER ([id number]) on 05/18/2021 7:51:27 AM Referred By: MARCIO Confirmed By:ESPINOZA BOYER MD
[2021-05-14 03:00] LABS: ALB/GLOB Ratio 1.1 RATIO (0.9-2.4); AST(SGOT) 44 U/L (15-37); Alanine Aminotransfer ALT/SGPT 22 U/L (13-56); Albumin, Serum 3.6 g/dL (3.2-5.0); Alkaline Phosphatase 69 U/L (45-117); Anion Gap 9 (5-15); BUN 39 mg/dL (7-18); Calcium,Total 9.2 mg/dL (8.5-10.1); Chloride 109 mmol/L (98-107); EST Glomerular Filtration Rate 42 mL/min (>60); Est Glom Filt Rate - Afr Amer 50 mL/min (>60); Estimated Creatinine Clearance 23.97 ml/min; Globulin 3.4 g/dL (2.2-4.2); Glucose 98 mg/dL (74-106); Potassium 3.7 mmol/L (3.5-5.1); Sodium Level 143 mmol/L (136-145); Troponin-I HS 15 pg/mL (3.0-54.0)
[2021-05-14 03:56] LABS: Absolute Lymphocyte Count 1.81 X10^3/uL (0.83-4.51); Absolute Neutrophil Count 6.5 X10^3/uL (2.0-7.7); Basophil# 0.07 X10^3/uL; Basophil% 0.7 % (0-1); Eosinophil# 0.11 X10^3/uL; Eosinophils% 1.2 % (0-5); Hematocrit 43.8 % (37-47); Hemoglobin 13.5 g/dL (12.0-15.0); Lymphocyte # 1.81 X10^3/ul (0.83-4.51); Lymphocyte % 19.3 % (19-41); Mean Corp Hgb Conc 30.8 g/dL (32-36); Monocyte# 0.92 X10^3/uL; Monocyte% 9.8 % (0-10); NRBC Flagged by Analyzer 0 % (0-5); Neutrophil # 6.48 X10^3/uL (2.7-7.7); Neutrophil % 68.9 % (47-70); Platelet Count 167 K/mm3 (150-450); RBC Distribution Width CV 13.1 % (11.6-14.6); RBC Distribution Width SD 45.1 fl (35.1-43.9); Red Blood Count 4.66 M/mm3 (4.2-5.4); White Blood Count 9.4 K/mm3 (4.4-11.0)
[2021-05-14 04:05] VITALS: RESP 16
[2021-05-14 05:45] VITALS: BP 96/84; PULSE 99; RESP 18; O2SAT 96
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
--- NOTE | 2021-05-14 06:04 | ED.RN ---
SPOKE WITH [place] [facility]ORI FROM [facility]. UPDATED INFORMATION ABOUT PATIENT. PER [place] MAORI [facility] FOR PATIENT TO COME TO CONTINUE TO BE TRANSFERRED THERE. REQUESTED WE CALL WITH ETA.
[2021-05-14 06:29] LABS: Color, Urine Yellow (Yellow); Glucose, Dipstick Normal (Normal); Ketone-Dipstick 15 mg/dl (Negative); Leukocyte Esterase-Dipstick 500 /ul (Negative); Nitrite-Dipstick Negative (Negative); Occult Blood-Urine 10 /ul (Negative); Protein-Dipstick 30 mg/dl (Negative); Specific Gravity, Urine 1.025 (1.002-1.030); Urine Clarity Clear (Clear); Urine Urobilinogen 1 mg/dl (Normal)
--- NOTE | 2021-05-14 06:33 | ED.RN ---
SPOKE WITH REGIONAL TRANSFER LINE, ABLE TO HAVE SQUAD HERE AROUND 0730 TO CONTINUE TRANSFER TO [facility].
[2021-05-14 06:35] LABS: Urine Bilirubin Dipstick 1 mg/dL (Negative)
[2021-05-14 06:36] LABS: Red Blood Cells-Urine 0-5 SEEN /hpf (0-5); White Blood Cells 50-100 SEEN /hpf (0-5)
[2021-05-14 06:37] LABS: Bacteria 1+ /hpf (None Seen); Hyaline Cast 5-10 SEEN /lpf (0-5); Mucous, Urine 2+ /hpf (<or=2+); Squamous Epithelial Cells - UA 0-5 SEEN /hpf (5-10)
[2021-05-14 06:45] LABS: Amphetamine Urine VISTA NEGATIVE (<1000 ng/mL); Barbiturate Urine VISTA NEGATIVE (< 200 ng/mL); Benzodiazepine Urine VISTA NEGATIVE (< 200 ng/mL); Cocaine Urine VISTA NEGATIVE (< 300 ng/mL); Ecstacy Urine VISTA NEGATIVE (< 500 ng/mL); Methadone Urine VISTA NEGATIVE (< 300 ng/mL); PCP Urine VISTA NEGATIVE (< 25 ng/mL); THC Urine VISTA NEGATIVE (< 50 ng/mL); Vista UDS pH Range 5
[2021-05-14] MEDS: Nitrofurantoin Macrocrystals 100 MG Capsule PO (06:46)
[2021-05-14 07:53] VITALS: BP 142/66; PULSE 74; RESP 16; O2SAT 95
== END 2021-05-14 07:55 ==
PROVIDERS: Emergency Provider Emergency Medicine; PCP Internal Medicine
DX: F03.90 Unspecified dementia, unspecified severity, without behavioral disturbance, psychotic disturbance, mood disturbance, and anxiety (principal); R45.1 Restlessness and agitation; N39.0 Urinary tract infection, site not specified; R44.3 Hallucinations, unspecified
CPT/HCPCS: 70450; 80048; 80053; 80307; 81001; 82077; 84484; 85025; 87086; 87088; 93005; 96360; 99285; J7040; A4216

== ENCOUNTER → 2021-09-03 04:00 | Outpatient (REF) | payer MEDICARE, MEDICAID, SELFPAY | LOC: OLS.SW400 04:00 | PROVIDERS: PCP Internal Medicine; Visit Provider Internal Medicine | DX: E03.9 Hypothyroidism, unspecified (principal) | CPT/HCPCS: 36415; 84443 ==

== ENCOUNTER → 2021-09-14 04:00 | Outpatient (REF) | payer MEDICARE, MEDICAID, SELFPAY ==
[2021-09-14 08:48] LABS: Hematocrit 34.7 % (37-47); Hemoglobin 10.4 g/dL (12.0-15.0); Mean Corpuscular Hgb 27.8 pg (27.0-32.0); Mean Corpuscular Volume 92.8 fL (81-99); Mean Platelet Vol. 10.5 fl (6.2-12.0); Platelet Count 258 K/mm3 (150-450); RBC Distribution Width CV 12.9 % (11.6-14.6); RBC Distribution Width SD 44.1 fl (35.1-43.9); Red Blood Count 3.74 M/mm3 (4.2-5.4); White Blood Count 7.4 K/mm3 (4.4-11.0)
[2021-09-14 09:11] LABS: Anion Gap 6 (5-15); BUN 27 mg/dL (7-18); BUN/Creat Ratio 21.6 RATIO (10-20); Chloride 105 mmol/L (98-107); Creatinine, Serum 1.25 mg/dL (0.55-1.02); EST Glomerular Filtration Rate 44 mL/min (>60); Est Glom Filt Rate - Afr Amer 53 mL/min (>60); Glucose 111 mg/dL (74-106); Hemoglobin A1c 5.4 % (3.8-5.6); Sodium Level 137 mmol/L (136-145); Thyroid Stim Hormone (TSH) 0.77 uIU/mL (0.358-3.74)
== END ==
LOC: OLS.SW400 04:00
PROVIDERS: PCP Internal Medicine; Visit Provider Internal Medicine
DX: E03.9 Hypothyroidism, unspecified (principal); E11.9 Type 2 diabetes mellitus without complications; Z79.899 Other long term (current) drug therapy
CPT/HCPCS: 36415; 80048; 80178; 83036; 84443; 85027